=== PATIENT | female | born 1970 | race Caucasian/White ===

== ENCOUNTER 2024-08-11 11:20 | Emergency (ER) | payer BC ==
[~2024-08-11] VITALS: Ht 167.6 cm; Wt 90.9 kg
[~2024-08-11 11:20] MED LIST: CITA-178 PO
--- NOTE | 2024-08-11 13:16 | RADIOLOGY REPORT ---
CLINICAL INDICATION: RIGHT ANKLE PAIN TECHNIQUE: 3 radiographic views of the right ankle were obtained. Comparison: None FINDINGS/IMPRESSION: There is no evidence of acute fracture or dislocation. The visualized joint space is well maintained. The alignment is anatomical. There is no radiopaque foreign body.
--- NOTE | 2024-08-11 14:02 | Physician Documentation ---
History of Present Illness General Chief Complaint: Ankle pain Stated Complaint: R ANKLE PAIN Time Seen by MD: 12:33 Primary Medical Doctor: Ashlie History of Present Illness Initial Comments 54-year-old female who injured her right ankle to now we skull continues to have waxing and waning pain. Last night while walking stairs experienced some crunching sensation had some swelling the brought into the emergency department today. Continues to have medial swelling and discomfort to the right ankle. She is grossly neurologically intact. Medication Reconciliation Allergies: Coded Allergies: No Known Allergies (Unverified , 08/11/24) Scheduled Citalopram Hydrobromide* (Celexa*), 20 MG PO DAILY, (Reported) Past Medical History Past Medical History: Pneumonia, Depression Past Surgical History: Smoking: Cigarettes Alcohol Use: None Drug Use: none Lives with: Family Lives In: Home Review of Systems All Other Systems at this time: Reviewed and Negative Constitutional: Denies: fever Physical Exam Physical Exam Vital Signs: RN Vital Signs have been reviewed: Yes, Temperature: 98.5, Source: Oral, Heart Rate: 69, Respiratory Rate: 18, BP: 117/82, Pulse Oximetry: 97, Weight: 90.910 Oxygen Flow Rate: 0 General Appearance: alert, mild distress Head: normal inspection Face: normal inspection Pupils/EOM/Fundus: PERRLA Neck: non-tender Respiratory: no respiratory distress Chest: chest non-tender Extremities: other (Tenderness and swelling to the medial malleolus of the right ankle.) Neurologic: oriented x4 Motor / Sensory: no motor deficit, no sensory deficit Psychiatric: normal mood/affect Skin: normal color Lymphatic: no adenopathy Progress Results/Orders Results/Orders Vital Signs 08/11/24 08/11/24 11:25 13:29 Temp 98.5 98.5 Pulse 80 69 Resp 19 18 B/P (MAP) 120/79 117/82 (94) Pulse Ox 97 97 O2 Flow Rate 0 0 Medical Decision Making Differential Diagnosis Interval x-rays obtained today reassuring for no fracture dislocation. High suspicion for an moderate to high-grade ligament injury we will go ahead and place in Cam walker boot for comfort & support. Recommend ortho follow up. Departure Disposition: HOME / SELF CARE / HOMELESS Impression: Primary Impression: Sprain of ankle Qualified Codes: S93.401A - Sprain of unspecified ligament of right ankle, initial encounter Condition: Stable Discharge Instructions: Ankle Sprain Additional Instructions: Your x-rays obtained today I reassuring for no evidence of fracture dislocation. Please wear Cam walker boot for comfort support and may cloth appointment with [facility]. Referrals: NO PRIMARY CARE PROVIDER (PCP) Education Educated: Patient Educated regarding: diagnosis Signature Scribe Signature: . Attestation: . KAMILLE PENG PAC Aug 11, 2024 14:02
[2024-08-11 14:33] VITALS: BP 106/65; PULSE 72; RESP 16; TEMP 98.5; O2SAT 99
== END 2024-08-11 14:35 | disposition home or self-care (01) ==
LOC: ER 11:21
DX: S93.401A Sprain of unspecified ligament of right ankle, initial encounter (principal); F32.A Depression, unspecified; F17.210 Nicotine dependence, cigarettes, uncomplicated; X58.XXXA Exposure to other specified factors, initial encounter; Y93.01 Activity, walking, marching and hiking; Y92.89 Other specified places as the place of occurrence of the external cause; Y99.8 Other external cause status
CPT/HCPCS: 73610; 99283; L4360

== ENCOUNTER 2024-10-20 11:48 | Inpatient (IN) | payer BC ==
[~2024-10-20] VITALS: Ht 167.6 cm; Wt 96.2 kg
--- NOTE | 2024-10-20 12:08 | ELECTROCARDIOGRAPH REPORT ---
[facility] Test Date: 2024-10-20 Test Time: 11:55:33 Pat Name: NAYA DAI Department: EMERGENCY ROOM Room: Gender: F [employer]: : 1970 Requested By: MAC MORE Order Number: [id number] Reading MD: Measurements Intervals [place]ridge Rate: 87 P: 41 CT: 157 QRS: -25 QRSD: 148 T: 22 QT: 419 QTc: 504 Interpretive Statements Sinus rhythm Right bundle branch block Please click the below link to view image of tracing.
--- NOTE | 2024-10-20 12:16 | Physician Documentation ---
History of Present Illness ~ Chief Complaint: Chest Pain Stated Complaint: CHEST PAIN Time Seen by MD: 14:24 OK to notify your PCP?: Yes Primary Medical Doctor: Ashlie Source: patient, family HPI Patient is seen today with complaints of epigastric abdominal pain/lower chest pain as well as left upper quadrant abdominal pain. Patient states pain started few days ago in his just gotten worse. Patient states she has not eaten anything it today and denies any relieving or aggravating factors of the pain. Patient states she does take an antacid for GERD. Patient denies any significant alcohol usage currently. She does admit to smoking history. She states her abdominal pain is severe and intractable. She denies any fevers or chills or nausea, vomiting, diarrhea. She has no other concern or complaint at this time. Day of Onset: Oct 20, 2024 Tetanus within 5 Years?: Yes Allergies: Coded Allergies: No Known Allergies (Unverified , 10/20/24) Active Prescriptions See Medication Reconciliation Form. Medication Reconciliation Scheduled Citalopram Hydrobromide* (Celexa*), 20 MG PO DAILY, (Reported) Lisinopril (Lisinopril), 20 TAB PO DAILY, (Reported) Metformin HCl (Metformin HCl), 500 TAB PO BID, (Reported) Omeprazole (Prilosec), 40 CAP PO DAILY, (Reported) Rosuvastatin Calcium (Rosuvastatin Calcium), 40 TAB PO DAILY, (Reported) Semaglutide (Ozempic), 0.5 MG SQ Q7D, (Reported) Past Medical History Past Medical History: Pneumonia, Depression Past Surgical History: Alcohol Use: None Drug Use: none Lives with: Family Lives In: Home Review of Systems All Other Systems at this time: Reviewed and Negative ROS As stated above in the HPI, otherwise all systems are reviewed and negative. Constitutional: Denies: chills, fever, weakness Eyes: Denies: pain, blurred vision ENT: Denies: ear pain, nose pain, throat pain, mouth pain Respiratory: Denies: cough, shortness of breath Cardiovascular: Denies: chest pain, palpitations Gastrointestinal: Denies: abdominal pain, nausea, vomiting Genitourinary: Denies: burning, dysuria Female Genitalia: Denies: vaginal discharge, pelvic pain Neurological: Denies: headache, dizziness Musculoskeletal: Denies: pain, swelling Integumentary: Denies: rash, lesions Allergic/Immunologic: Denies: hives, itching Hematologic/Lymphatic: Denies: no symptoms reported Psychiatric: Denies: depression, anxiety Physical Exam Vital Signs: Temperature: 97.5, Source: Temporal, Heart Rate: 82, Respiratory Rate: 18, BP: 130/80, Pulse Oximetry: 97, Weight: 96.250 Physical Exam General: Alert, no apparent distress. HEENT: PERRL, EOMI, no injection, moist mucous membranes. Neck: Full range of motion. Respiratory: Lungs clear, no respiratory distress. Chest: No accessory muscle use. Cardiovascular: Regular rate and rhythm, no murmurs. Gastrointestinal: Patient on exam has severe epigastric abdominal tenderness to palpation along with left upper quadrant abdominal tenderness to palpation. Patient has guarding but no rebound tenderness in the abdomen is soft and nondistended. Extremities: Normal range of motion, no deformity. Neurologic: Oriented x4. Psychiatric: Normal mood and affect. Skin: Normal color, warm and dry. No edema, no ecchymosis. Progress Results/Orders Results/Orders Orders - MAC MORE MILITARY TECHNOLOGY SPECIALIST Monitor (10/20/24 12:05) Chest,Single View (10/20/24 12:20) Saline Lock (10/20/24 12:05) Oxygen (10/20/24 12:05) Completed Orders - MAC MORE MILITARY TECHNOLOGY SPECIALIST Chest,Single View (10/20/24 12:20) Cbc/Diff (10/20/24 12:05) BMP (10/20/24 12:05) PBNP (10/20/24 12:05) Hs Troponin I W Calculations (10/20/24 12:05) Hs Troponin I W Calculations (10/20/24 14:05) Hs Troponin I W Calculations (10/20/24 15:05) Electrocardiogram (10/20/24 12:05) Lipase (10/20/24 12:00) Hgb A1c (10/20/24 12:00) Vital Signs 10/20/24 10/20/24 10/20/24 10/20/24 12:02 15:48 15:49 17:47 Temp 97.5 Pulse 82 74 Resp 18 18 18 16 B/P (MAP) 130/80 129/93 (105) Pulse Ox 97 93 O2 Flow Rate 0 8/11/25 8/11/25 8/11/25 17:52 17:53 18:15 Pulse 68 Resp 16 14 B/P (MAP) 120/70 (87) Pulse Ox 100 99 O2 Delivery Room Air* O2 Flow Rate 0 0 FiO2 21 Laboratory Tests Test 10/20/24 12:00 10/20/24 14:19 10/20/24 15:08 10/20/24 15:16 White Blood Count 9.6 Red Blood Count 4.80 Hemoglobin 14.0 Hematocrit 40.9 Mean Corpuscular Volume 85.3 Mean Corpuscular Hemoglobin 29.1 Mean Corpuscular Hemoglobin Concent 34.1 Red Cell Distribution Width 14.9 H Platelet Count 236 Mean Platelet Volume 9.0 Neutrophils (%) (Auto) 65.2 Lymphocytes (%) (Auto) 21.7 Monocytes (%) (Auto) 11.0 Eosinophils (%) (Auto) 0.8 Basophils (%) (Auto) 1.3 H Neutrophils # (Auto) 6.2 Lymphocytes # (Auto) 2.1 Monocytes # (Auto) 1.1 H Eosinophils # (Auto) 0.1 Basophils # (Auto) 0.1 CBC Comment D-Dimer 0.41 D-Dimer Comment Sodium Level 140 Potassium Level 3.9 Chloride Level 105 Carbon Dioxide Level 26.6 Anion Gap 8 Blood Urea Nitrogen 15 Creatinine 0.88 Estimated GFR/1.73 m2 67 BUN/Creatinine Ratio 17.0 Glucose Level 114 H Hemoglobin A1c 6.3 H Calcium Level 9.4 Troponin I High Sensitivity < 4 L < 4 L < 4 L Troponin I High Sens Percent Delta Troponin I Hi Sens Absolute Change Pro-B-Type Natriuretic Peptide 171 H Albumin 3.9 Lipase 85 H Chemistry Comments Urine Specimen Description Non-specified Urine Color Straw Urine Clarity Clear Urine pH 6.0 Urine Specific [place] <=1.005 Urine Protein Negative Urine Glucose (UA) Negative Urine Ketones Negative Urine Occult Blood Negative Urine Nitrite Negative Urine Bilirubin Negative Urine Urobilinogen 0.2 Urine Leukocyte Esterase Negative Volume Urine Centrifuged 10 ml Urine Comment Test 10/20/24 19:00 Total Bilirubin 0.5 Direct Bilirubin 0.1 Aspartate Amino Transf (AST/SGOT) 17 Alanine Aminotransferase (ALT/SGPT) 27 Alkaline Phosphatase 67 Total Protein 6.9 Albumin 3.6 Globulin 3.3 Albumin/Globulin Ratio 1.1 Procalcitonin < 0.05 Thyroid Stimulating Hormone (TSH) 4.81 H Chemistry Comments EKG/XRAY/CT/US/VASC/MRI CT : Impression CAT SCAN Patient: NAYA DAI Medical Record: [id number] OF [facility] : 1970, Age: 54 Sex: Female Location: ER Patient Status: REG ER Service Date/Time: 10/20/241726 Ordering Physician: JAROCHO LU PAC Exam: CT ABDOMEN PELVIS COMPUTERIZED TOMOGRAPHY ABDOMEN AND PELVIS WITH CONTRAST REASON FOR EXAM: upper abd pain COMPARISON: None TECHNIQUE: The exam was performed on a Multidetector scanner. Spiral scans were acquired from the diaphragm to the symphysis pubis after administration of IV contrast. 2-D coronal and sagittal reformatted images were provided. Radiation optimization: All CT scans at this facility use at least one of these dose optimization techniques: Automated exposure control mA and/or kV adjustment per patient size (includes targeted exams where dose is matched to clinical indication) or iterative reconstruction. RADIATION DOSE: CTDI: 27 mGy DLP: 1447 mGy-cm FINDINGS: There is mild dependent atelectasis in bilateral lower lobes of the lungs. There is no pleural effusion. There is no pericardial effusion. The spleen is not enlarged. The liver is mildly enlarged. There is a 7.1 x 5.6 cm cyst in the inferior left lobe of the liver. There is subtle inflammatory stranding in the fat anterior to the cyst. There is a suggestion of peripheral enhancement about the cyst. 2 gallstones are noted within the gallbladder. There is no pericholecystic edema. The pancreas is within normal limits. The adrenal glands are normal. The kidneys enhance symmetrically. No solid renal mass is identified. There is no hydronephrosis of either kidney. There is no abdominal aortic aneurysm. No pathologic lymphadenopathy is identified by size criteria. No free fluid is identified in the abdomen or pelvis. There is a 1.4 cm enhancing round nodule within the uterine fundus, likely a fibroid. The uterus and ovaries are otherwise unremarkable. There is contrast refluxing down of the left gonadal vein which can be seen with pelvic congestion syndrome. No free fluid is identified in the abdomen or pelvis. The colonic stool burden is small. The appendix is normal. There is no pathologic distention of the small bowel. No acute osseous abnormality is identified. There are degenerative changes in the lower lumbar spine. IMPRESSION: There is a 7.1 cm cyst in the inferior left lobe of the liver with subtle adjacent inflammatory change. Correlate clinically with physical exam and clinical picture for possible infected hepatic cyst. Normal appendix. Cholelithiasis without evidence of cholecystitis. Electronically Signed by:MANJINDER MARQUIS MD Date & Time: 10/20/241822 Dictated by: MANJINDER MARQUIS MD Dictation date and time: 10/20/241822 Primary Care Provider: NO PRIMARY CARE PROVIDER cc: JAROCOH LU PAC ~ Ultrasound : Impression ULTRASOUND Patient: NAYA DAI Medical Record: [id number] OF [facility] : 1970, Age: 54 Sex: Female Location: ER Patient Status: [facility] ER Service Date/Time: 10/20/241649 Ordering Physician: JAROCHO LU PAC Exam: ULTRASOUND OF ABDOMEN ULTRASOUND ABDOMEN, LIMITED RIGHT UPPER QUADRANT: REASON FOR EXAM: upper abd pain TECHNIQUE: Real-time sector scans in the transverse and longitudinal planes were obtained through the right upper quadrant of the abdomen. FINDINGS: The liver is enlarged at 18.9 cm in length. The liver is diffusely echogenic. There is hepatopetal flow in the portal vein. There is a simple a ppearing anechoic cyst within the left lobe of the liver measuring 6.6 cm. There is no intrahepatic nor extrahepatic biliary ductal dilatation. The common bile duct measures 4 mm. There are a few shadowing stones within the gallbladder. There is no gallbladder wall thickening nor pericholecystic fluid. There is no sonographic Pino's sign. The visualized portion of the pancreas is unremarkable. The right kidney measures 10.4 cm. No hydronephrosis or nephrolithiasis is identified. There is no evidence of right renal mass or cyst. The visualized portions of the abdominal aorta demonstrate no evidence of aneurysmal dilatation. The visualized inferior vena cava is unremarkable. There is no free fluid identified in the right upper quadrant. IMPRESSION: Cholelithiasis without evidence of cholecystitis. No sonographic pino's sign. Hepatomegaly. The liver is diffusely echogenic which may be secondary to steatosis or another diffuse hepatic process. Correlate clinically and with liver function tests. Electronically Signed by:MANJINDER MARQUIS MD Date & Time: 10/20/241812 Dictated by: MANJINDER MARQUIS MD Dictation date and time: 10/20/241812 Primary Care Provider: NO PRIMARY CARE PROVIDER cc: JAROCHO LU PAC ~ Medical Decision Making Findings Patient is seen today with complaints of epigastric abdominal pain/lower chest pain as well as left upper quadrant abdominal pain. Patient states pain started few days ago in his just gotten worse. Patient states she has not eaten anything it today and denies any relieving or aggravating factors of the pain. Patient states she does take an antacid for GERD. Patient denies any significant alcohol usage currently. She does admit to smoking history. She states her abdominal pain is severe and intractable. She denies any fevers or chills or nausea, vomiting, diarrhea. She has no other concern or complaint at this time. Patient did have ultrasound of the abdomen that did show gallstones without any sign of cystitis. CT scan of abdomen and pelvis with IV contrast did show 7.1 cm hepatic cyst. I did consult General surgery who agreed to see patient in the morning and patient was admitted to the hospital for further eval and treatment of her intractable abdominal pain. Patient was treated with morphine 4 mg IV but patient states pain was mildly relieved and returned shortly after and patient was given another 4 mg of morphine IV and patient again states severe epigastric abdominal pain not significantly relieved by morphine administration. Departure Disposition: ADMITTED INPATIENT Admitted to Inpatient Unit: to hospitalist Admission Level of Care: Med/Surg Impression: Primary Impression: Intractable abdominal pain Additional Impression: Hepatic cyst Condition: Stable Additional Instructions: Patient did have ultrasound of the abdomen that did show gallstones without any sign of cystitis. CT scan of abdomen and pelvis with IV contrast did show 7.1 cm hepatic cyst. I did consult General surgery who agreed to see patient in the morning and patient was admitted to the hospital for further eval and treatment of her intractable abdominal pain. Patient was treated with morphine 4 mg IV but patient states pain was mildly relieved and returned shortly after and patient was given another 4 mg of morphine IV and patient again states severe epigastric abdominal pain not significantly relieved by morphine administration. Referrals: NO PRIMARY CARE PROVIDER (PCP) Signature Scribe Signature: No scribe Attestation: No scribe MAC MORE MILITARY TECHNOLOGY SPECIALIST Oct 20, 2024 12:16 JAROCHO LU PAC Oct 20, 2024 16:56
[2024-10-20 12:20] LABS: MEAN PLATELET VOLUME 9.0 FL (7.4-10.4); RED CELL DISTRIBUTION WIDTH 14.9 % (11.5-14.5)
[2024-10-20 12:37] LABS: CREATININE 0.88 MG/DL (0.40-0.90); PRO BRAIN NATRIURETIC PEPTIDE 171 PG/ML (0-125); TOTAL CARBON DIOXIDE 26.6 MMOL/L (24-32); eCRCL 68 ML/MIN; eGFR 67 ML/MIN
--- NOTE | 2024-10-20 12:44 | RADIOLOGY REPORT ---
CHEST RADIOGRAPH Indication: CP Technique: Single frontal view of the chest was obtained Comparison: None FINDINGS: Lines and Tubes: None Lungs: No focal consolidation. Pleura: No effusion. No pneumothorax. Cardiomediastinal contours: Unremarkable Bones: No acute osseous abnormality. IMPRESSION: No acute cardiopulmonary disease.
[2024-10-20 15:20] LABS: LEUKOCYTE ESTERASE ,URINE NEGATIVE (Neg); NITRITES, URINE NEGATIVE (Neg); OCCULT BLOOD,URINE NEGATIVE (Neg)
[2024-10-20 15:25] LABS: UA COLLECTION TYPE NON-SPECIFIED
[2024-10-20] MEDS: LIDOcaine 2% Viscous 15ml cup MM STA (16:09)
[2024-10-20] MEDS: pantoprazole 40mg Tablet.DR PO STA (16:12)
[2024-10-20] MEDS: mag hydrox/Alum hydrox/simeth 30ml oral suspension PO STA (16:12)
[2024-10-20] MEDS ORDERED: iohexol 300mg/ml 100ml inj. ONE (17:15)
[2024-10-20] MEDS: ondansetron/PF 4mg/2ml inj IV STA (17:46)
[2024-10-20] MEDS: morphine 4 MG/ML inj SYRINge IV STA ×2 (17:47→19:57)
--- NOTE | 2024-10-20 18:16 | RADIOLOGY REPORT ---
ULTRASOUND ABDOMEN, LIMITED RIGHT UPPER QUADRANT: REASON FOR EXAM: upper abd pain TECHNIQUE: Real-time sector scans in the transverse and longitudinal planes were obtained through th e right upper quadrant of the abdomen. FINDINGS: The liver is enlarged at 18.9 cm in length. The liver is diffusely echogenic. There is hep atopetal flow in the portal vein. There is a simple appearing anechoic cyst within the left lobe of t he liver measuring 6.6 cm. There is no intrahepatic nor extrahepatic biliary ductal dilatation. The common bile duct measures 4 mm. There are a few shadowing stones within the gallbladder. There is no gallbladder wall thickening nor pericholecystic fluid. There is no sonographic Pino's sign. The visualized portion of the pancreas is unremarkable. The right kidney measures 10.4 cm. No hydronephrosis or nephrolithiasis is identified. There is no evidence of right renal mass or cyst. The visualized portions of the abdominal aorta demonstrate no evidence of aneurysmal dilatation. The visualized inferior vena cava is unremarkable. There is no free fluid identified in the right upper quadrant. IMPRESSION: Cholelithiasis without evidence of cholecystitis. No sonographic pino's sign. Hepatomegaly. The liver is diffusely echogenic which may be secondary to steatosis or another diffuse hepatic process. Correlate clinically and with liver function tests.
--- NOTE | 2024-10-20 18:26 | RADIOLOGY REPORT ---
COMPUTERIZED TOMOGRAPHY ABDOMEN AND PELVIS WITH CONTRAST REASON FOR EXAM: upper abd pain COMPARISON: None TECHNIQUE: The exam was performed on a Multidetector scanner. Spiral scans were acquired from the geovanna phragm to the symphysis pubis after administration of IV contrast. 2-D coronal and sagittal reformatt ed images were provided. Radiation optimization: All CT scans at this facility use at least one of th alphonso dose optimization techniques: Automated exposure control mA and/or kV adjustment per patient size (includes targeted exams where dose is matched to clinical indication) or iterative reconstruction. RADIATION DOSE: CTDI: 27 mGy DLP: 1447 mGy-cm FINDINGS: There is mild dependent atelectasis in bilateral lower lobes of the lungs. There is no pleural effusi on. There is no pericardial effusion. The spleen is not enlarged. The liver is mildly enlarged. There is a 7.1 x 5.6 cm cyst in the inferio r left lobe of the liver. There is subtle inflammatory stranding in the fat anterior to the cyst. Th ere is a suggestion of peripheral enhancement about the cyst. 2 gallstones are noted within the gallb ladder. There is no pericholecystic edema. The pancreas is within normal limits. The adrenal glands are normal. The kidneys enhance symmetrically. No solid renal mass is identified. There is no hydron ephrosis of either kidney. There is no abdominal aortic aneurysm. No pathologic lymphadenopathy is id entified by size criteria. No free fluid is identified in the abdomen or pelvis. There is a 1.4 cm en hancing round nodule within the uterine fundus, likely a fibroid. The uterus and ovaries are otherwi se unremarkable. There is contrast refluxing down of the left gonadal vein which can be seen with pel omid congestion syndrome. No free fluid is identified in the abdomen or pelvis. The colonic stool bur den is small. The appendix is normal. There is no pathologic distention of the small bowel. No acute osseous abnormality is identified. There are degenerative changes in the lower lumbar spine. IMPRESSION: There is a 7.1 cm cyst in the inferior left lobe of the liver with subtle adjacent inflammatory molina e. Correlate clinically with physical exam and clinical picture for possible infected hepatic cyst. Normal appendix. Cholelithiasis without evidence of cholecystitis.
[2024-10-20] MEDS ORDERED: potassium Cl 40MEQ/1/2NS 520ml 520 ML IV PRN (20:55)
[2024-10-20] MEDS ORDERED: magnesium hydroxide 30ml (MOM) UD suspension PO PRN (20:55)
[2024-10-20] MEDS ORDERED: mag hydrox/Alum hydrox/simeth 30ml oral suspension PO PRN (20:55)
[2024-10-20] MEDS ORDERED: magnesium Cl slow-release 64mg tablet PO PRN (20:55)
[2024-10-20] MEDS ORDERED: magnesium sulf-water 4G/100mL 100 ML IV PRN (20:55)
[2024-10-20] MEDS ORDERED: magnesium sulf-water 2g/50mL 50 ML IV PRN (20:55)
[2024-10-20] MEDS ORDERED: HYDROmorphone/PF 0.2 MG/ML SYRINGE IV PRN (20:55)
[2024-10-20] MEDS ORDERED: potassium Cl 20 mEq SR tablet PO PRN ×2 (20:55)
[2024-10-20] MEDS ORDERED: docusate sod 100mg capsule PO PRN (20:55)
[2024-10-20] MEDS ORDERED: SEMA0.258 SQ (21:19)
[2024-10-20] MEDS ORDERED: OMEP40CA21 PO (21:19)
[2024-10-20] MEDS ORDERED: LISI20TA28 PO (21:19)
[2024-10-20] MEDS ORDERED: ROSU40TA89 PO (21:19)
[2024-10-20] MEDS ORDERED: METF-1203 PO (21:19)
--- NOTE | 2024-10-20 21:19 | HISTORY AND PHYSICAL-Residence ---
History & Physical Providers to CC Resident Creating Document: TOMMY MERCEDES BRANDON ~ History of Present Illness Primary Medical Doctor: SHELDON Reason for Admit\Complaint: Upper abd pain from possible infectious hepatic cyst History of Present Illness A 54 years old female with PMH of HLD, HTN, T2DM on Metformin and Ozempic injection, GERD, Gall stones, depression and pneumoina history, substance abuse history ( tobacco, cannabinis) and insomnia, and family history CAD and young ACS in her father and grandfather came to the ER for the sudden acute upper abd pain since yesterday morning alongside of low grade fever with chills. She woke up on the yesterday director of cardiopulmonary services with her constant sharp upper abd pain started at the epigastrium with the intensity of 2/10 which gradually inclined in intensity, radiated to the left jaw and back with the right shoulder pain. She endorsed that the pain was worsen while she lied on her back but found relived with the leaning forward and standing up. She has never experienced any pain like that before. The pain was not associated with the eating habit, and greasy food but she noticed that the color of her Bowel movement starting to change into the pale yellow colored now and denied for steatorrhea. She stopped eating and drinking since yesterday afternoon but denied for any nausea and vomiting. She noticed there was a low grade fever with 99'F with some chills while she was in the ER. She denied for yellowish coloration of the skin and eyes, itchy and discoloration of the skin, chest pain pressure and discomfort although her attributed for the possible heart attack pain, abnormal LUTI symptoms and abnormal bowel movement, and hemoptysis. She has 2 dogs and 1 cat at home but denied to sleep on the same bed and sharing the utensils, and her mostly taking care of the dogs' BM and they are at the outside of the house. She denied for any other recent previous history of travelling outside of the country, recent diagnosis and treatment for malignancy and she is usually fully ambulatory. Allergies: Coded Allergies: No Known Allergies (Unverified , 10/20/24) Home Medications Home Medications Active Reported Celexa* (Citalopram Hydrobromide) 20 Mg Tablet 20 Mg PO DAILY Past Medical History Past Medical History -HLD -HTN -T2DM on Metformin and Ozempic injection -GERD -Gall stones -depression -pneumoina history -substance abuse history ( tobacco, cannabinis) -insomnia -She go see Dr Foster for her palpitations and RBBB Past Surgical History Surgical History Comment Not relevant PSH Past Social History Social History Comment she is employed and currently residing with her spouse. Occupation- She denied using any illicit drugs but using cannabis for her insomnia She used to smoke 2 packs of cigarette per day for 40 years and currently cutting down to the 4-5 per day. She denied using EtOH Smoking: Cigarettes Alcohol Use: None Drug Use: None Lives with: Family Lives In: Home ROS All Other Systems: Reviewed and Negative ROS Constitutional: No dizziness, weakness, weight gain or loss Eyes: No pain, erythema, discharge, blurring of vision ENT: No sore throat, epistaxis, tinnitus Cardiovascular: No chest pain, chest pressure, chest discomfort, palpitations, syncope, lower extremity edema, paroxysmal nocturnal dyspnea Respiratory: No cough, hemoptysis Gastrointestinal: Normal appetite. No nausea, vomiting, diarrhea, constipation, hematemesis, bloating, melena or fresh blood Genitourinary: No frequency, urgency, nocturia, hematuria or dysuria Musculoskeletal: No arthralgias or myalgias Integumentary: No change in skin, hair, nails. No swelling, bruising, abrasions Neurologic: No headache, neck pain, numbness or tingling of the extremities, weakness Psychiatric: No delusions, depression, loss of interest in normal activity or change in sleep pattern, hallucinations, suicidal ideations Endocrine: No fatigue, weakness, polydipsia, polyuria, change in appetite, heat or cold intolerance, sweating, dry skin Hematological: No bleeding, petechiae, bruising Allergies: No asthma or urticaria Exam Vitals: Vital Signs Date Time Temp Pulse Resp B/P (MAP) Pulse Ox O2 Delivery O2 Flow Rate FiO2 10/20/24 20:59 80 17 111/86 (94) 100 10/20/24 17:53 Room Air* 0 21 10/20/24 12:02 97.5 General: General: Anxious and in pain, Well alert, well oriented, not confused, not agitated, not in acute distress, well cooperated during the physical. HEENT: HEENT: Conjunctive are pink, sclerae clear, no icterus, pupil is equal in both sides, reactive to light, no ear discharge, no pharyngeal erythema or an edema, mouth and lips are dry. Neck: Neck: Supple, no JVD, no lymphadenopathy and thyromegaly. Chest: Lungs:Equal air entry on both lungs, no additional sounds Cardiovascular: Heart: S1-S2 regular sinus rhythm and, regular rate, no gallops, no rubs, no murmurs Abdomen: Abdomen: No visible peristalsis, Bowel sounds present on auscultation, soft, tenderness at epigastrium, RHC tenderness, no guarding, no rigidity Extremities: Extremities: No obvious deformities, no pitting edema bilaterally, capillary refill intact, able to wiggle toes both sides, peripheral pulsations are intact on both sides Central Nervous System: GOLDSMITH APPRENTICE: No focal neurological deficits, no motor and sensory weakness in all 4 extremities, could move all 4 extremities Musculoskeletal: Musculoskeletal: No joint swelling, deformities, inflammations, and no scoliosis and back tenderness Skin: Skin: No active skin lesions and rashes Diagnostic Data Last Recorded Lab Results: 10/20/24 1200 10/20/24 1200 Diagnostic Data: Laboratory Tests Test 10/20/24 12:00 D-Dimer 0.41 MG/L FEU (0-0.50) D-Dimer Comment Counseling Services Smoking & Tobacco Cessation: > 10 Minutes Additional Plan A 54 years old female with PMH of HLD, HTN, T2DM on Metformin and Ozempic injection, GERD, Gall stones, depression and pneumoina history, substance abuse history ( tobacco, cannabinis) and insomnia, and family history CAD and young ACS in her father and grandfather came to the ER for the sudden acute upper abd pain since yesterday morning alongside of low grade fever with chills. # Acute upper abdominal pain 2/2 below # Infectious Hepatic cyst (inferior lobe)- 7.1 x 5.6 cm with hepatomegaly # Cholelithiasis, not in acute cholecystitis # GERD -Serial trop <4, and her HEART score was low with 3 in the setting of co morbidities and active smoking along with the extensive CAD/ ACS hx of family; no EKG changes except for the RBBB -Her modified Wells criteria for pulmonary embolism was 0 and WNL D Dimer -USG abd showed no intrahepatic nor extrahepatic biliary ductal dilatation. The common bile duct measures 4 mm. There are a few shadowing stones within the gallbladder. There is no gallbladder wall thickening nor pericholecystic fluid. There is no sonographic Pino's sign. -CT AP w/ contrast showed IMPRESSION: There is a 7.1 cm cyst in the inferior left lobe of the liver with subtle adjacent inflammatory change. Correlate clinically with physical exam and clinical picture for possible infected hepatic cyst. Normal appendix. Cholelithiasis without evidence of cholecystitis. -Lipase elevated but not in the acute trifold elevation manner, in the setting of chronic ozempic injection Plan: NPO for now, titrated as tolerated : IV NS 0.9% 125 ml/hr : pain control with the IV Dilaudid as needed : need to consult with surgery, and ER provided stated that he will be informing to the on-call surgical team : pending procal and ESR, WBC WNL : educated about the possible anaphlatic reaction of the ruptured infectious cyst, and reassured with the monitoring and consultation with the surgical team : Started IV Protonix 40 mg QD : Tracking LIpase for the possible uptrending x 3 : possible ID consultation for possible infectious w/ Ecoli/ Staph/ Strep/ Klebsiella from the ascending infections from biliary tree Vs rare Parasitic infection w/ Ecchiococcus from dog feces. # T2DM # HTN # HLD # Class 2 obesity, BMI 34.2 # FMH of CAD/ACS -pending HbA1C TSH and Lipid profile -continue her Rosuvastatin, Metformin, and Lisinopril from her home meds -Reassure her serial trop and EKG findings -continue monitoring # Uterine fibroid, 1.4 cm # Degenerative lower lumbar spine -control the back pain as much as possible -no menstrual problem at that moment -deferred to out patient management # Substance abuse (tobacco and cannabinis) -counselled the possible risks of having abusing tobacco in the setting of extensive FMH, in the metabolic syndrome -encouraged for her achievement to the cutting down of smoking to non-smoking at all -drug screen pending CODE STATUS: Full code DVT prophylaxis: Sc heparin 5000 units b.i.d. Analgesia/sedation: Tylenol/IV Dilaudid as needed Lines/tubes: PIV GI prophylaxis: IV Protonix Nutrition: NPO for now, titrate as tolerated Prognosis: Guarded Disposition: Continue medical management including IV fluids, pain control, F/up W/pending lab, f/up w/ Surgery and possible ID consultation, PT eval and DC plan. Resident attestation: Patient was seen, examined and discussed with attending , Dr. Lucie MERCEDES MD Internal Medicine Resident, PGY3 [facility] Date of Service: Oct 20, 2024 Billing Provider: JAROCHO SLATER MD,TOMMY, RES Oct 20, 2024 21:19
[2024-10-20 22:04] LABS: APTT 37 SECONDS (22-32); INR 1.0 INR
[2024-10-21] MEDS: normal saline 1000ml 1,000 ML IV SCH (00:02)
[2024-10-21] MEDS: HYDROmorphone inj. 0.5 MG/0.5 ML DISP.SYRIN IV PRN (00:03)
[2024-10-21 03:05] LABS: MEAN PLATELET VOLUME 8.4 FL (7.4-10.4); RED CELL DISTRIBUTION WIDTH 15.0 % (11.5-14.5)
[2024-10-21 03:41] LABS: CHOL/HDL RATIO 2.7 (0.00-4.99); CREATININE 0.90 MG/DL (0.40-0.90); LDL CHOLESTEROL 46 MG/DL (50-100); TOTAL CARBON DIOXIDE 29.1 MMOL/L (24-32); eCRCL 66 ML/MIN; eGFR 65 ML/MIN
[2024-10-21] MEDS: K and/or MAG REPLACEMENT MC SCH (06:17)
[2024-10-21] MEDS: ondansetron/PF 4mg/2ml inj IV PRN (06:51)
[2024-10-21 07:07] VITALS: BP 148/73; PULSE 55; RESP 16; TEMP 96.1; O2SAT 93
--- NOTE | 2024-10-21 08:26 | CONSULTATION REPORT ---
Consult Providers to CC ~ History of Present Illness Reason for Admit\Complaint: Epigastric, upper abdominal tenderness History of Present Illness 54-year-old female who presented to the emergency room with above complaints. Signs and symptoms began on Sunday10/19/2024. Since then, other associated symptoms include nausea and vomiting. She denies any diarrhea or constipation. She claims to have low-grade fever but no chills. ER evaluation included CT scan which demonstrated a cyst of the left lobe of the liver. Patient denies any recent travel. She does have pets at home but claims that they are clean. She denies any recent recreational activities infarcts or lakes. She states to have a insect bite of the left 3rd finger. Insect was large an unidentified. Past medical history significant for hypertension, diabetes, GERD, obesity, hypercholesterolemia. She is all by section. She is currently postmenopausal and does not take any hormonal replacements. No significant abdominal surgeries except for C-sections. She she is currently seen, no acute distress, pain limited to upper abdomen. Allergies: Coded Allergies: No Known Allergies (Unverified , 10/20/24) Home Medications Home Medications Active Reported Prilosec (Omeprazole) 40 Mg Capsule 40 Cap PO DAILY Rosuvastatin Calcium 40 Mg Tablet 40 Tab PO DAILY Lisinopril 20 Mg Tablet 20 Tab PO DAILY Metformin HCl 500 Mg Tablet 500 Tab PO BID Ozempic (Semaglutide) 0.25 Mg/0.368 Ml Pen.injctr 0.5 Mg SQ Q7D Celexa* (Citalopram Hydrobromide) 20 Mg Tablet 20 Mg PO DAILY Past Medical History Past Medical History Diabetes, hypertension, GERD, hypercholesterolemia, obesity, back pain Past Surgical History Surgical History Comment section x2 Past Social History Social History Comment Denies any alcohol, recreational drug abuse Health Maintenance Health Maintenance Non documented ROS ROS All within normal limits except HPI Exam Vitals: Vital Signs Date Time Temp Pulse Resp B/P (MAP) Pulse Ox O2 Delivery O2 Flow Rate FiO2 10/21/24 07:07 96.1 55 16 148/73 (98) 93 Room Air 10/21/24 06:34 0 10/21/24 05:51 21 General: No acute distress, well-nourished, well-hydrated HEENT: NC/AT, PERRLA, nonicteric, no nasal discharge, no pharyngeal exudate Neck: Supple, nontender, trachea midline Chest: Clear to auscultation bilaterally Cardiovascular: Regular rate and rhythm Abdomen: Soft, nondistended, +BS, + diffuse upper abdominal tenderness, no guarding, no rebound Extremities: Good muscle strength. Left middle finger with residual swelling recent insect bite Central Nervous System: Alert and oriented, no gross or focal deficits Musculoskeletal: Free range of motion, no weakness Skin: Warm, dry Diagnostic Data Last Recorded Lab Results: 10/21/24 0257 10/21/24 0257 Diagnostic Data: Laboratory Tests Test 10/20/24 12:00 10/20/24 21:12 D-Dimer 0.41 MG/L FEU (0-0.50) D-Dimer Comment Prothrombin Time 10.7 SECONDS (9.0-12.0) INR International Normalized Ratio 1.0 INR Activated Partial Thromboplast Time 37 SECONDS (22-32) H Coagulation Comments COMPUTERIZED TOMOGRAPHY ABDOMEN AND PELVIS WITH CONTRAST REASON FOR EXAM: upper abd pain COMPARISON: None TECHNIQUE: The exam was performed on a Multidetector scanner. Spiral scans were acquired from the diaphragm to the symphysis pubis after administration of IV contrast. 2-D coronal and sagittal reformatted images were provided. Radiation optimization: All CT scans at this facility use at least one of these dose optimization techniques: Automated exposure control mA and/or kV adjustment per patient size (includes targeted exams where dose is matched to clinical indication) or iterative reconstruction. RADIATION DOSE: CTDI: 27 mGy DLP: 1447 mGy-cm FINDINGS: There is mild dependent atelectasis in bilateral lower lobes of the lungs. There is no pleural effusion. There is no pericardial effusion. The spleen is not enlarged. The liver is mildly enlarged. There is a 7.1 x 5.6 cm cyst in the inferior left lobe of the liver. There is subtle inflammatory stranding in the fat anterior to the cyst. There is a suggestion of peripheral enhancement about the cyst. 2 gallstones are noted within the gallbladder. There is no pericholecystic edema. The pancreas is within normal limits. The adrenal glands are normal. The kidneys enhance symmetrically. No solid renal mass is identified. There is no hydronephrosis of either kidney. There is no abdominal aortic aneurysm. No pathologic lymphadenopathy is identified by size criteria. No free fluid is identified in the abdomen or pelvis. There is a 1.4 cm enhancing round nodule within the uterine fundus, likely a fibroid. The uterus and ovaries are otherwise unremarkable. There is contrast refluxing down of the left gonadal vein which can be seen with pelvic congestion syndrome. No free fluid is identified in the abdomen or pelvis. The colonic stool burden is small. The appendix is normal. There is no pathologic distention of the small bowel. No acute osseous abnormality is identified. There are degenerative changes in the lower lumbar spine. IMPRESSION: There is a 7.1 cm cyst in the inferior left lobe of the liver with subtle adjacent inflammatory change. Correlate clinically with physical exam and clinical picture for possible infected hepatic cyst. Normal appendix. Cholelithiasis without evidence of cholecystitis. Problems: (1) Hepatic cyst Status: Acute Assessment & Plan: Assessment: Incidental hepatic cyst. Etiology? Plan: No plans for any acute surgical intervention at present time. Need to evaluate etiology of hepatic cyst. Rule out any parasitic or infectious sources. Recommend MRCP/MRI. Serology testing as needed. FIONA COHEN DO Oct 21, 2024 08:26
[2024-10-21] MEDS: piperacillin/tazo 4.5gm/100ml 100 ML IV SCH (09:53)
[2024-10-21 10:30] VITALS: BP 127/75; PULSE 68; RESP 16; TEMP 98.7; O2SAT 95
[2024-10-21] MEDS: heparin, porcine 5000 units/ml vial SQ SCH (11:45)
--- NOTE | 2024-10-21 14:23 | CONSULTATION REPORT - RESIDENT ---
Consult Providers to CC Resident Creating Document: JOSSELYN GARCÍA RES History of Present Illness Reason for Admit\Complaint: Upper abdominal pain History of Present Illness A 54 year old female with PMH of HLD, HTN, T2DM on Metformin and Ozempic injection, GERD, Gall stones, depression, substance abuse history (tobacco, cannabinis) and insomnia, came to the ER for sudden acute upper abd pain since 10/19/24 alongside of low grade fever with chills. She woke up with her sharp upper abd pain on 10/19/24, started at the epigastrium with the intensity of 2/10 which gradually increased in intensity. She states that the pain severity has gone upto 9/10 intermittently. She states that the pain radiated to the left jaw and back with the right shoulder pain. She endorsed that the pain worsened when she lied on her back but found relieved when leaning forward and standing up. The pain was not associated with the eating habit, and fatty foods but she noticed that the color of her bowel movement starting to change into pale yellow colored now and denied for steatorrhea. She denied nausea and vomiting yesterday-10/20/24, but she states that she vomited today and attributes that to the ongoing medications. She states that she had fever with some chills. She denied for yellowish coloration of the skin and eyes, itchy and discoloration of the skin, chest pain pressure and discomfort, hemoptysis, hematemesis. She stated that her last bowel movement was yesterday. She denied for any other recent previous history of travelling outside of the country. She states that she has been diagnosed with olivia's esophagus 5 years ago when she had an EGD and she claims that the doctor put a balloon and stretched her esophagus. She has been taking PPI's whenever necessary. She also states that she has gallstones. She had 2 colonoscopies and she stated that her polyps were removed and that they were unremarkable. Allergies: Coded Allergies: No Known Allergies (Unverified , 10/20/24) Home Medications Home Medications Active Reported Prilosec (Omeprazole) 40 Mg Capsule 40 Cap PO DAILY Rosuvastatin Calcium 40 Mg Tablet 40 Tab PO DAILY Lisinopril 20 Mg Tablet 20 Tab PO DAILY Metformin HCl 500 Mg Tablet 500 Tab PO BID Ozempic (Semaglutide) 0.25 Mg/0.368 Ml Pen.injctr 0.5 Mg SQ Q7D Celexa* (Citalopram Hydrobromide) 20 Mg Tablet 20 Mg PO DAILY Past Medical History Past Medical History -HLD -HTN -T2DM on Metformin and Ozempic injection -GERD -Gall stones -depression -pneumoina history -substance abuse history ( tobacco, cannabinis) -insomnia -palpitations and RBBB Past Surgical History Surgical History Comment No relevant surgical history Family History Family History: FH: diabetes mellitus FATHER, , Cause: Heart attack ROS ROS Constitutional: No dizziness, weakness, weight gain or loss Eyes: No pain, erythema, discharge, blurring of vision ENT: No sore throat, epistaxis, tinnitus Cardiovascular: No chest pain, chest pressure, chest discomfort, palpitations, syncope, lower extremity edema, paroxysmal nocturnal dyspnea Respiratory: No cough, hemoptysis Gastrointestinal: Normal appetite. No nausea, vomiting, diarrhea, constipation, hematemesis, bloating, melena or fresh blood Genitourinary: No frequency, urgency, nocturia, hematuria or dysuria Musculoskeletal: No arthralgias or myalgias Integumentary: No change in skin, hair, nails. No swelling, bruising, abrasions Neurologic: No headache, neck pain, numbness or tingling of the extremities, weakness Psychiatric: No delusions, depression, loss of interest in normal activity or change in sleep pattern, hallucinations, suicidal ideations Endocrine: No fatigue, weakness, polydipsia, polyuria, change in appetite, heat or cold intolerance, sweating, dry skin Hematological: No bleeding, petechiae, bruising Allergies: No asthma or urticaria Exam Vitals: Vital Signs Date Time Temp Pulse Resp B/P (MAP) Pulse Ox O2 Delivery O2 Flow Rate FiO2 10/21/24 10:30 98.7 68 16 127/75 (92) 95 Room Air 10/21/24 08:30 0.0 21 General: General: Anxious and in pain, Well alert, well oriented, not confused, not agitated, not in acute distress HEENT: HEENT: Conjunctive are pink, sclerae clear, no icterus, pupil is equal in both sides, reactive to light, no pharyngeal erythema or an edema, mouth and lips are dry. Neck: Neck: Supple, no JVD, no lymphadenopathy and thyromegaly. Chest: Lungs:Equal air entry on both lungs, no additional sounds Cardiovascular: Heart: S1-S2 regular sinus rhythm and, regular rate, no gallops, no rubs, no murmurs Abdomen: Abdomen: soft, tenderness at epigastrium, Right hypochondrium tenderness, no guarding, no rigidity, Bowel sounds present on auscultation Extremities: Extremities: No obvious deformities, no pitting edema bilaterally Central Nervous System: CLIENT DEVELOPMENT CONSULTANT: No focal neurological deficits Musculoskeletal: Musculoskeletal: No joint swelling, deformities, inflammations, and no scoliosis and back tenderness Skin: Skin: No active skin lesions and rashes Diagnostic Data Last Recorded Lab Results: 10/21/24 0257 10/21/24 0257 Diagnostic Data: Laboratory Tests Test 10/20/24 12:00 10/20/24 21:12 D-Dimer 0.41 MG/L FEU (0-0.50) D-Dimer Comment Prothrombin Time 10.7 SECONDS (9.0-12.0) INR International Normalized Ratio 1.0 INR Activated Partial Thromboplast Time 37 SECONDS (22-32) H Coagulation Comments Additional Plan Acute abdominal pain Abdomen/Pelvis CT-10/20/24 There is a 7.1 cm cyst in the inferior left lobe of the liver with subtle adjacent inflammatory change. Correlate clinically with physical exam and clinical picture for possible infected hepatic cyst. Abdomen US-10/20/24 Cholelithiasis without evidence of cholecystitis. No sonographic huerta's sign. Hepatomegaly. The liver is diffusely echogenic which may be secondary to steatosis or another diffuse hepatic process. Correlate clinically and with liver function tests. Differential diagnosis: possible infected hepatic cyst Cholelithiasis GERD Olivia's esophagus Plan: Continue pain control with the IV Dilaudid as needed Continue IV NS Continue iv Protonix Continue Piperacillin/Tazobactam Date of Service: Oct 21, 2024 Billing Provider: KACEY TAN MD, PREETHI, RES Oct 21, 2024 14:23 KACEY TAN MD Oct 22, 2024 13:13
[2024-10-21 18:00] VITALS: BP 104/67; PULSE 54; RESP 15; TEMP 97.5; O2SAT 97
--- NOTE | 2024-10-21 18:48 | PROGRESS NOTE ---
Daily Progress Note Providers to CC ~ Antibiotic Timeout Antibiotic Ordered?: Yes Subjective The patient has a moderate amount of right upper quadrant abdominal discomfort she denies any symptoms with eating Objective Vital Signs Date Time Temp Pulse Resp B/P (MAP) Pulse Ox O2 Delivery O2 Flow Rate FiO2 10/21/24 10:30 98.7 68 16 127/75 (92) 95 Room Air 10/21/24 08:30 0.0 21 Result Diagram: 10/21/2425610/21/24 025 Gen. No acute distress alert and oriented 4 Lungs clear to ascultation bilaterally, no wheezes rales or rhonchi appreciated Heart normal sinus rhythm no murmurs rubs or clicks noted Abdomen soft nontender bowel sounds are normoactive Lower extremities no clubbing cyanosis, nor edema appreciated bilaterally Coagulation Studies Laboratory Tests Test 10/20/24 12:00 10/20/24 21:12 D-Dimer 0.41 MG/L FEU (0-0.50) D-Dimer Comment Prothrombin Time 10.7 SECONDS (9.0-12.0) INR International Normalized Ratio 1.0 INR Activated Partial Thromboplast Time 37 SECONDS (22-32) H Coagulation Comments Problem\Assessment\Plan Problems/Diagnosis: (1) Hepatic cyst # Hepatic cyst (inferior lobe)- 7.1 x 5.6 cm with hepatomegaly- possibly infectious # Cholelithiasis, not in acute cholecystitis # GERD Evaluated by Dr. Mauro Rogel Surgeon- no surgical intervention is warranted at this time Recommended rule out parasitic and infectious sources Recommended MRCP and a MRI which are ordered Evaluated by egg trayer Dr. Bishop Recommended to continue IV Dilaudid for pain control and IV Zosyn # [id number] diabetes mellitus On the hyper and hypo glycemic protocol # HTN # HLD # Class 2 obesity, BMI 34.2 Continue rosuvastatin Continue lisinopril # Substance abuse (tobacco and cannabinis) -counselled the possible risks of having abusing tobacco in the setting of extensive FMH, in the metabolic syndrome -encouraged for her achievement to the cutting down of smoking to non-smoking at all -drug screen pending # DVT prophylaxis SQ heparin Date of Service: Oct 21, 2024 Billing Provider: TRISTAN FULLER DO Common Visit Codes: [id number] INP/OBS CARE(HIGH) TRISTAN FULLER DO Oct 21, 2024 18:48
[2024-10-21 20:00] VITALS: RESP 20
[2024-10-21 22:00] VITALS: BP 100/56; PULSE 65; RESP 15; TEMP 98.1; O2SAT 94
[2024-10-22 04:56] LABS: MEAN PLATELET VOLUME 8.6 FL (7.4-10.4); RED CELL DISTRIBUTION WIDTH 14.6 % (11.5-14.5)
[2024-10-22 05:17] LABS: CREATININE 1.15 MG/DL (0.40-0.90); TOTAL CARBON DIOXIDE 28.3 MMOL/L (24-32); eCRCL 52 ML/MIN; eGFR 49 ML/MIN
[2024-10-22 06:21] VITALS: BP 106/70; PULSE 53; RESP 15; TEMP 98.3; O2SAT 98
[2024-10-22 10:00] VITALS: BP 123/65; PULSE 53; RESP 17; TEMP 97.2; O2SAT 93
--- NOTE | 2024-10-22 10:06 | RADIOLOGY REPORT ---
MRI Abdomen, MRCP without IV Contrast Exam Date: 10/22/2024 09:07 AM Comparison: US ULTRASOUND OF ABDOMEN on DOS: 10/20/24, CT CT ABDOMEN PELVIS W/ IV CONTRAST on DOS: 10/10 04/05 History: Large hepatic cyst Technique: Multisequence multiplanar MRI images were obtained of the abomen. MRCP including 3D SPACE, Radial 2D slabs and SPACE 3D MIP images Findings: Liver: Hepatic steatosis. Hepatomegaly. Left hepatic lobe cyst measures 6.9 cm. Segment 8 cyst measur es 0.9 cm. Spleen: Unremarkable. Pancreas: The pancreas is normal in appearance without focal lesions. Gallbladder and ducts: Cholelithiasis noted without secondary findings of cholecystitis or biliary ob struction. The cystic duct, right and left hepatic ducts, common hepatic duct, and common bile ducts are unremarkable. The pancreatic duct is within normal limits. Adrenal glands: Unremarkable. Kidneys: Normal enhancement without suspicious lesions or hydronephrosis. Visualized bowel: Grossly unremarkable. Vasculature: Unremarkable. Lymphadenopathy: No evidence for lymphadenopathy. Ascites: Absent. Musculoskeletal: Bone marrow signal is normal. IMPRESSION: Cholelithiasis noted without secondary findings of cholecystitis or biliary obstruction. No findings of choledocholithiasis. Hepatic steatosis. Hepatomegaly.
--- NOTE | 2024-10-22 11:58 | PROGRESS NOTE ---
Progress Note Dictate Providers to CC ~ Progress Note: Patient admitted for epigastric and upper abdominal pain, noted to have hepatic cyst left lobe of the liver. She is currently seen, denies any fever, chills, nausea, vomiting. Abdominal pain is less but still present. Pain mostly epigastric. Central Line/PICC still needed: N\A Antibiotic Ordered?: Yes Subjective Subjective Patient admitted for epigastric and upper abdominal pain, noted to have hepatic cyst left lobe of the liver. She is currently seen, denies any fever, chills, nausea, vomiting. Abdominal pain is less but still present. Pain mostly epigastric. Objective Vitals Vital Signs Date Time Temp Pulse Resp B/P (MAP) Pulse Ox O2 Delivery O2 Flow Rate FiO2 10/22/24 10:20 54 10/22/24 06:21 98.3 15 106/70 (82) 98 Room Air 10/21/24 20:00 0.0 21 Lungs: Clear CVS: RRR Abdomen: Soft, nondistended, mild epigastric tenderness, no guarding, no rebound Extremities: No calf tenderness, no edema Lab Results: 10/22/24 0438 10/22/24 0438 Coagulation Studies Laboratory Tests Test 10/20/24 12:00 10/20/24 21:12 D-Dimer 0.41 MG/L FEU (0-0.50) D-Dimer Comment Prothrombin Time 10.7 SECONDS (9.0-12.0) INR International Normalized Ratio 1.0 INR Activated Partial Thromboplast Time 37 SECONDS (22-32) H Coagulation Comments Problem\Assessment\Plan Problems/Diagnosis: (1) Hepatic cyst Assessment & Plan: Assessment: Incidental hepatic cyst. Etiology? Plan: Still no plans for any acute surgical intervention at present time. MRCP did not show any common bile duct pathology, pancreatic pathology. Demonstrates presence of gallstones without any acute processes. Serology testing as needed. Patient waiting to be seen by public transit bus driver. Surgery will follow as needed. FIONA COHEN DO Oct 22, 2024 11:58
[2024-10-22 18:00] VITALS: BP 119/71; PULSE 64; RESP 18; TEMP 97.5; O2SAT 98
[2024-10-22 20:00] VITALS: RESP 18; O2SAT 98
--- NOTE | 2024-10-22 20:19 | PROGRESS NOTE ---
Daily Progress Note Providers to CC No new complaint today resting comfortably in the bed ~ Central Line/PICC still needed: No [place]-Non Protocol Duck[place] Indications Met/Not Met: F/C Indications Not Met Antibiotic Timeout Antibiotic Ordered?: No MRSA Education MRSA Education Provided to pt: No Subjective As above Objective Vital Signs Date Time Temp Pulse Resp B/P (MAP) Pulse Ox O2 Delivery O2 Flow Rate FiO2 10/22/24 18:00 97.5 64 18 119/71 (87) 98 Room Air 10/22/24 08:20 0.0 21 Vital signs, stable ,afebrile. Pulse Oximetry reflects adequate oxygenation. General: well developed, well nourished. Awake , alert, and oriented x4, resting comfortably in the bed, in no acute distress . Skin: Warm, dry, no pallor, no rash or petechiae. HEENT: Atraumatic, normocephalic, EOMI, anicteric sclera B; pink conjunctiva; PERRLA, normal oropharynx, moist oral and nasal mucosa. Tympanic membrane , nose , throat clear. Neck: Trachea midline. Supple, full range of motion, no JVD, bruit , hepatojugular reflex , lymphadenopathy or masses, or other lesions Cardiac: Regular rhythm, regular rate no murmurs, rubs, or gallops. Normal S1 and S2, no S3 noticed. PMI is normal. Respiratory: Equal breath sounds bilaterally, no tachypnea; lungs clear to auscultation bilaterally, no wheezing ,rub or rales, or crackles. Chest wall is symmetric and without deformity. No signs of trauma. Chest wall is nontender. No signs of respiratory distress. Resonance is normal upon percussion bilaterally. Gastrointestinal: Abdomen symmetric, non-distended, soft, non-tender, normal bowel sounds x4 quadrant, normoactive, no hepatosplenomegaly , no masses , no bruit, no flank pain bilaterally. No voluntary guarding, rebound, or rigidity. No tenderness to percussion. No pulsatile masses. Equal femoral pulses. No Pino's sign or McBurney point tenderness. Back; no CVA tenderness bilaterally, no deformities. Neck and back are without deformity as well. No tenderness noted on palpation of the spinous processes. Spinous processes are midline. Cervical, thoracic, and lumbar paraspinal muscles are not tender and are without spasm. Musculoskeletal: Extremities, normal range of motion, non-tender, muscle strength 5/5 x 4. Negative Homans signs bilaterally on lower extremity. Distal pulses full symmetrical, no clubbing, cyanosis , edema. Neurological: Speech is clear, alert, and oriented x 4. No motor or sensory deficit, deep tendon reflexes normal, cerebellar intact. Cranial nerves II-XII intact. Psych: Alert and or appropriate, normal affect. Vascular: Good distal pulses, which are equal x4; capillary refill less than 2 seconds. Lymphatic, no lymphadenopathy. Result Diagram: 10/22/248 10/22/24437 Coagulation Studies Laboratory Tests Test 10/20/24 12:00 10/20/24 21:12 D-Dimer 0.41 MG/L FEU (0-0.50) D-Dimer Comment Prothrombin Time 10.7 SECONDS (9.0-12.0) INR International Normalized Ratio 1.0 INR Activated Partial Thromboplast Time 37 SECONDS (22-32) H Coagulation Comments Problem\Assessment\Plan Problems/Diagnosis: (1) Hepatic cyst # Hepatic cyst (inferior lobe)- 7.1 x 5.6 cm with hepatomegaly- possibly infectious # Cholelithiasis, not in acute cholecystitis # GERD Evaluated by Dr. Mauro Rogel Surgeon- no surgical intervention is warranted at this time Recommended rule out parasitic and infectious sources Recommended MRCP and a MRI which are ordered Evaluated by cardiopulmonary physical therapist Dr. Bishop , EGD in the morning scheduled Recommended to continue IV Dilaudid for pain control and IV Zosyn # [id number] diabetes mellitus On the hyper and hypo glycemic protocol # HTN # HLD # Class 2 obesity, BMI 34.2 Continue rosuvastatin Continue lisinopril # Substance abuse (tobacco and cannabinis) -counselled the possible risks of having abusing tobacco in the setting of extensive FMH, in the metabolic syndrome -encouraged for her achievement to the cutting down of smoking to non-smoking at all -drug screen pending # DVT prophylaxis SQ heparin Sepsis Screening Reassessment Date: Oct 22, 2024 Date of Service: Oct 22, 2024 Billing Provider: VARGAS CANTRELL MD Common Visit Codes: 87291-OZAUXJIOLY INP/OBS CARE(HIGH) VARGAS CANTRELL MD Oct 22, 2024 20:19
[2024-10-22 22:00] VITALS: BP 94/50; PULSE 61; RESP 16; TEMP 98.5; O2SAT 96
[2024-10-23] VITALS (11 sets, daily range): BP systolic 97–140; BP diastolic 56–80; PULSE 48–66; RESP 15–25; TEMP 97.8–98.3; O2SAT 94–100
[2024-10-23 05:18] LABS: MEAN PLATELET VOLUME 8.9 FL (7.4-10.4); RED CELL DISTRIBUTION WIDTH 14.9 % (11.5-14.5)
[2024-10-23 06:14] LABS: CREATININE 1.00 MG/DL (0.40-0.90); TOTAL CARBON DIOXIDE 25.0 MMOL/L (24-32); eCRCL 60 ML/MIN; eGFR 58 ML/MIN
--- NOTE | 2024-10-23 08:02 | PROGRESS NOTE- Residence ---
Progress Note - Resident Providers to CC Resident Creating Document: JOSSELYN GARCÍA RES ~ Antibiotic Timeout Antibiotic Ordered?: Yes Subjective Patient was seen and examined by bedside. She states that her abdominal pain is not as bad as when she came in. The pain is mostly epigastric. She states that she can move around without much distress. She reports having diarrhea since night. She denied vomiting, fever and chills. She had good appetite yesterday. Objective Vital Signs Date Time Temp Pulse Resp B/P (MAP) Pulse Ox O2 Delivery O2 Flow Rate FiO2 10/23/24 06:29 97.8 58 18 136/66 (89) 96 Room Air 10/22/24 08:20 0.0 21 General: Well alert, well oriented, not confused, not agitated, not in distress HEENT: HEENT: Conjunctive are pink, sclerae clear, no icterus, pupil is equal in both sides, reactive to light, no pharyngeal erythema or an edema, mouth and lips are moist. Neck: Neck: Supple, no JVD, no lymphadenopathy and thyromegaly. Chest: Lungs:Equal air entry on both lungs, no additional sounds Cardiovascular: Heart: S1-S2 regular sinus rhythm and, regular rate, no gallops, no rubs, no murmurs Abdomen: Abdomen: soft, tenderness at epigastrium, no guarding, no rigidity, Bowel sounds present on auscultation Extremities: Extremities: No obvious deformities, no pitting edema bilaterally Central Nervous System: TAXI SERVICER: No focal neurological deficits Musculoskeletal: Musculoskeletal: No joint swelling, deformities, inflammations, and no scoliosis and back tenderness Skin: Skin: No active skin lesions and rashes Result Diagram: 10/23/24 0443 10/23/24 0443 Coagulation Studies Laboratory Tests Test 10/20/24 12:00 10/20/24 21:12 D-Dimer 0.41 MG/L FEU (0-0.50) D-Dimer Comment Prothrombin Time 10.7 SECONDS (9.0-12.0) INR International Normalized Ratio 1.0 INR Activated Partial Thromboplast Time 37 SECONDS (22-32) H Coagulation Comments Assessment Assessment Abdomen MRI-10/22/24 Impression: Cholelithiasis noted without secondary findings of cholecystitis or biliary obstruction. No findings of choledocholithiasis. Hepatic steatosis. Hepatomegaly. MRCP-10/22/24 Cholelithiasis noted without secondary findings of cholecystitis or biliary obstruction. No findings of choledocholithiasis. Hepatic steatosis. Hepatomegaly. Abdomen/Pelvis CT- 10/20/24 There is a 7.1 cm cyst in the inferior left lobe of the liver with subtle adjacent inflammatory change. Correlate clinically with physical exam and clinical picture for possible infected hepatic cyst. Normal appendix. Cholelithiasis without evidence of cholecystitis. Abdomen US-10/20/24 Cholelithiasis without evidence of cholecystitis. No sonographic huerta's sign. Hepatomegaly. The liver is diffusely echogenic which may be secondary to steatosis or another diffuse hepatic process. Correlate clinically and with liver function tests. AST, ALT, Bilirubin within normal limits WBC- normal Differential diagnosis: Cholelithiasis GERD Morfin's esophagus hepatic cyst, possibly infectious Plan Plan Surgery was consulted and no surgical intervention is warranted at this time. Patient was on NPO since midnight. EGD and will intervene if necessary. The need for EGD, its benefits and complications, and the need for surgical intervention in the event of such a complication during EGD were explained to the patient, She understands and wishes to proceed further. Josselyn García MD INternal Medicine Resident, PGY-1 Date of Service: Oct 23, 2024 Billing Provider: KACEY TAN MD, PREETHI, BRANDON Oct 23, 2024 08:02
--- NOTE | 2024-10-23 08:18 | PROGRESS NOTE ---
DATE: 10/22/2024 DICTATING PHYSICIAN: Rachel Bishop MD SUBJECTIVE: The patient is feeling well. She continues to have some epigastric pain. No nausea, vomiting or associated heartburn. As far as the workup for the liver cyst incidentally find during initial imaging studies is being completed. She had an MRI today, which was essentially nondiagnostic. It is a benign cyst. I do not think it is an infected cyst. There is chololithiasis. The bile duct looked normal. PHYSICAL EXAMINATION: VITAL SIGNS: Normal. HEART: Normal. LUNGS: Normal. ABDOMEN: Soft, nontender. No masses. No organomegaly. Bowel sounds are present. IMPRESSION: * Epigastric pain. * Incidental finding of hepatic cyst. * Hepatic steatosis. * History of Kelechi's esophagus. RECOMMENDATIONS: Continue management that is going on currently. Diagnostic endoscopy for the symptoms that she came in with and also for surveillance of Kelechi's esophagus, she reports that she had an endoscopy 4 to 5 years ago. I suspect that this epigastric pain is more of acid peptic etiology than hepatobiliary etiology. The risks and benefits of EGD explained, which she understands and wishes to proceed. Further recommendations will be made after the endoscopy. Rachel Bishop MD TID: [id number] RECEIPT: [id number] KELL
[2024-10-23] MEDS ORDERED: propofol inj 20 ML IV ONE ×2 (14:24)
[2024-10-23] MEDS: pantoprazole 40mg Tablet.DR PO SCH (15:44)
--- NOTE | 2024-10-23 18:53 | DISCHARGE SUMMARY ---
Discharge Summary Providers to No new complaint today asking to be discharged home ~ Discharge Summary Assessment -HLD -HTN -T2DM on Metformin and Ozempic injection -GERD Chronic gastritis in exacerbation -Gall stones -depression -pneumoina history -substance abuse history ( tobacco, cannabinis) -insomnia Hepatic steatosis Admission Diagnosis: CP W/ LARGE HEPATIC INFECTED CYST Admission Diagnosis Comment: -HLD -HTN -T2DM on Metformin and Ozempic injection -GERD Chronic gastritis in exacerbation -Gall stones -depression -pneumoina history -substance abuse history ( tobacco, cannabinis) -insomnia Hepatic steatosis Hospital Course DATE OF ADMISSION: October 20, 2024 DATE OF DISCHARGE: October 23, 2024 Discharge Diagnosis\Comment: -HLD -HTN -T2DM on Metformin and Ozempic injection -GERD Chronic gastritis in exacerbation -Gall stones -depression -pneumoina history -substance abuse history ( tobacco, cannabinis) -insomnia Hepatic steatosis Operations\Procedures: EGD Consultants: GI doctor, general surgeon Complications: Non Condition on DC: Stable Discharge Summary: A 54 years old female with PMH of HLD, HTN, T2DM on Metformin and Ozempic injection, GERD, Gall stones, depression and pneumoina history, substance abuse history ( tobacco, cannabinis) and insomnia, and family history CAD and young ACS in her father and grandfather came to the ER for the sudden acute upper abd pain since yesterday morning alongside of low grade fever with chills.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 She endorsed that the pain was worsen while she lied on her back but found relived with the leaning forward and standing up. She has never experienced any pain like that before. The pain was not associated with the eating habit, and greasy food but she noticed that the color of her Bowel movement starting to change into the pale yellow colored now and denied for steatorrhea. She stopped eating and drinking since yesterday afternoon but denied for any nausea and vomiting. She noticed there was a low grade fever with 99'F with some chills while she was in the ER. She denied for yellowish coloration of the skin and eyes, itchy and discoloration of the skin, chest pain pressure and discomfort although her attributed for the possible heart attack pain, abnormal LUTI symptoms and abnormal bowel movement, and hemoptysis. She has 2 dogs and 1 cat at home but denied to sleep on the same bed and sharing the utensils, and her mostly taking care of the dogs' BM and they are at the outside of the house. She denied for any other recent previous history of travelling outside of the country, recent diagnosis and treatment for malignancy and she is usually fully ambulatory. After admission patient was extensively evaluated treated, today she is feeling fine, asking to be discharged home medication reconciled follow- up PCP and GI doctor in three days, today on physical exam Vital signs, stable ,afebrile. Pulse Oximetry reflects adequate oxygenation. General: well developed, well nourished. Awake , alert, and oriented x4, resting comfortably in the bed, in no acute distress . Skin: Warm, dry, no pallor, no rash or petechiae. HEENT: Atraumatic, normocephalic, EOMI, anicteric sclera B; pink conjunctiva; PERRLA, normal oropharynx, moist oral and nasal mucosa. Tympanic membrane , nose , throat clear. Neck: Trachea midline. Supple, full range of motion, no JVD, bruit , hepatojugular reflex , lymphadenopathy or masses, or other lesions Cardiac: Regular rhythm, regular rate no murmurs, rubs, or gallops. Normal S1 and S2, no S3 noticed. PMI is normal. Respiratory: Equal breath sounds bilaterally, no tachypnea; lungs clear to auscultation bilaterally, no wheezing ,rub or rales, or crackles. Chest wall is symmetric and without deformity. No signs of trauma. Chest wall is nontender. No signs of respiratory distress. Resonance is normal upon percussion kathie aterally. Gastrointestinal: Abdomen symmetric, non-distended, soft, non-tender, normal bowel sounds x4 quadrant, normoactive, no hepatosplenomegaly , no masses , no bruit, no flank pain bilaterally. No voluntary guarding, rebound, or rigidity. No tenderness to percussion. No pulsatile masses. Equal femoral pulses. No Pino's sign or McBurney point tenderness. Back; no CVA tenderness bilaterally, no deformities. Neck and back are without deformity as well. No tenderness noted on palpation of the spinous processes. Spinous processes are midline. Cervical, thoracic, and lumbar paraspinal muscles are not tender and are without spasm. Musculoskeletal: Extremities, normal range of motion, non-tender, muscle strength 5/5 x 4. Negative Homans signs bilaterally on lower extremity. Distal pulses full symmetrical, no clubbing, cyanosis , edema. Neurological: Speech is clear, alert, and oriented x 4. No motor or sensory deficit, deep tendon reflexes normal, cerebellar intact. Cranial nerves II-XII intact. Psych: Alert and or appropriate, normal affect. Vascular: Good distal pulses, which are equal x4; capillary refill less than 2 seconds. Lymphatic, no lymphadenopathy. *Problems/Diagnosis: (1) Hepatic cyst Status: Acute Total Time Spent on D/C: > 30 Minutes Date of Service: Oct 23, 2024 Billing Provider: VARGAS CANTRELL MD Common Visit Codes: 83030-SGO/OBS DISCH DAY >30min VARGAS CANTRELL MD Oct 23, 2024 18:53
== END 2024-10-23 17:00 | disposition home or self-care (01) | DRG 392 ==
LOC: ER 11:48 → ED HOLD 19:50 → EDBEDREQ 10-21 05:03 → SUR 3N 10-21 06:44
PROVIDERS: ADMIT Surgery Surgical Critical Care; ATTEND Family Medicine
PROC: BW211ZZ Computerized Tomography (CT Scan) of Abdomen and Pelvis using Low Osmolar Contrast (ICD-10-PCS; principal; 2024-10-20)
PROC: 0DB68ZX Excision of Stomach, Via Natural or Artificial Opening Endoscopic, Diagnostic (ICD-10-PCS; 2024-10-23)
PROC: 0DB78ZX Excision of Stomach, Pylorus, Via Natural or Artificial Opening Endoscopic, Diagnostic (ICD-10-PCS; 2024-10-23)
DX: K29.60 Other gastritis without bleeding (principal); G47.00 Insomnia, unspecified; I10 Essential (primary) hypertension; F32.A Depression, unspecified; K80.20 Calculus of gallbladder without cholecystitis without obstruction; K76.0 Fatty (change of) liver, not elsewhere classified; E78.00 Pure hypercholesterolemia, unspecified; K76.89 Other specified diseases of liver; K29.80 Duodenitis without bleeding; E66.812 Obesity, class 2; E11.9 Type 2 diabetes mellitus without complications; K21.9 Gastro-esophageal reflux disease without esophagitis; Z79.84 Long term (current) use of oral hypoglycemic drugs; Z79.899 Other long term (current) drug therapy; Z98.891 History of uterine scar from previous surgery; Z68.35 Body mass index [BMI] 35.0-35.9, adult; Z87.891 Personal history of nicotine dependence
CPT/HCPCS: 36415; 43239; 71045; 74177; 74181; 76700; 80048; 80053; 80061; 80076; 81003; 82948; 83036; 83690; 83735; 83880; 84145; 84443; 84484; 85025; 85379; 85610; 85651; 85730; 87081; 93005; 96374; 96375; 96376; 99285; G0378; J1171; J1644; J2270; J2405; J2470; J2543; J2704; J7030; J7120; Q9967

== ENCOUNTER 2024-12-08 07:27 | Day surgery (SDC) | payer BC ==
[2024-12-08] VITALS (9 sets, daily range): BP systolic 94–147; BP diastolic 61–78; PULSE 57–67; RESP 14–19; TEMP 96; O2SAT 93–99
[~2024-12-08] VITALS: Ht 167.6 cm; Wt 96.0 kg
[~2024-12-08 07:27] MED LIST changes: -CITA-178 PO; +LISI20TA28 PO; +METF-1203 PO; +OMEP40CA21 PO; +ROSU40TA89 PO; +SEMA0.258 SQ; +ringers solution, lacted 1,000 ML IV SCH
[2024-12-08] MEDS ORDERED: fentaNYL/PF 50MCG/1 ML 2ML syringe ONE (09:41)
[2024-12-08] MEDS ORDERED: MIDAZolam 1 MG/ML 5ML VIAL ONE (09:41)
== END 2024-12-08 11:27 | disposition home or self-care (01) ==
LOC: GI LAB 07:27
PROVIDERS: ATTEND Internal Medicine Gastroenterology
DX: Z12.11 Encounter for screening for malignant neoplasm of colon (principal); K57.30 Diverticulosis of large intestine without perforation or abscess without bleeding; I10 Essential (primary) hypertension; E11.9 Type 2 diabetes mellitus without complications; K21.9 Gastro-esophageal reflux disease without esophagitis; F32.A Depression, unspecified; G47.00 Insomnia, unspecified; Z79.84 Long term (current) use of oral hypoglycemic drugs; Z79.899 Other long term (current) drug therapy; Z86.0100 Personal history of colon polyps, unspecified; Z87.891 Personal history of nicotine dependence; Z98.891 History of uterine scar from previous surgery; Z98.890 Other specified postprocedural states
CPT/HCPCS: 45378; 82948; J2250; J3010; J7120; Z7512; 99152; 99153; A4620